=== PATIENT | female | born 1970 | race African-American/Black ===

== ENCOUNTER 2023-07-12 19:32 | Inpatient (IN) | payer BC, OTHER ==
[~2023-07-12] VITALS: Ht 152.4 cm; Wt 58.5 kg
[2023-07-12 19:39] VITALS: BP_SYST 100; PULSE 100; RESP 19; TEMP 97.2; O2SAT 100
[2023-07-12] MEDS ORDERED: ASPIRIN 81 MG TAB.CHEW PO ONE (20:00)
[2023-07-12 20:25] LABS: BASOPHILS # (AUTO) 0.1 K/uL (0.0-0.2); BASOPHILS % (AUTO) 0.5 % (0.0-2.0); EOSINOPHILS # (AUTO) 0.2 K/uL (0.0-0.4); EOSINOPHILS % (AUTO) 0.9 % (0.0-4.0); HEMATOCRIT 25.9 % (36-48); HEMOGLOBIN 8.4 g/dL (12.0-16.0); LYMPHOCYTES # (AUTO) 3.7 K/uL (1.0-5.5); LYMPHOCYTES % (AUTO) 17.4 % (20.5-51.5); MEAN CORPUSCULAR HEMOGLOBIN 25 pg (27-31); MEAN CORPUSCULAR HGB CONC 33 % (32-36); MEAN CORPUSCULAR VOLUME 76 fL (79.0-98.0); MONOCYTES # (AUTO) 2.3 K/uL (0.0-1.0); MONOCYTES % (AUTO) 10.8 % (1.7-9.3); NEUTROPHILS # (AUTO) 14.9 K/uL (1.8-7.7); NEUTROPHILS % (AUTO) 70.4 % (40.0-70.0); PLATELET COUNT (AUTO) 550 K/uL (130-430); RED BLOOD CELL COUNT(AUTO) 3.42 MIL/uL (4.2-6.2); WHITE BLOOD COUNT (AUTO) 21.1 K/uL (4.8-10.8)
[2023-07-12 20:45] LABS: ANION GAP 12 (5-15); CALCIUM 8.6 mg/dL (8.4-11.0); CARBON DIOXIDE 21 mmol/L (23-29); CHLORIDE 99 mmol/L (98-107); CREATININE 1.33 mg/dL (0.55-1.30); GFR AFRICAN AMERICAN 53 mL/min (>90); GLUCOSE 229 mg/dL (74-106); POTASSIUM 3.6 mmol/L (3.5-5.1); SODIUM SERUM 132 mmol/L (136-145); UREA NITROGEN, BLOOD 8 mg/dL (8-21)
[2023-07-12] MEDS ORDERED: PIPERACILLIN/TAZOBACTAM 2.25 GM in NS 50 ML IV ONE (20:45)
[2023-07-12 20:52] LABS: ALANINE AMINOTRANSFERASE 36 U/L (12-78); ALBUMIN 2.5 g/dL (3.4-4.8); ASPARTATE AMINOTRANSFERASE 48 U/L (10-37); BILIRUBIN,DIRECT 0.1 mg/dL (0.0-0.3); TOTAL BILIRUBIN 0.4 mg/dL (0.0-1.0); TOTAL PROTEIN, SERUM 6.4 g/dL (6.4-8.3)
[2023-07-12 20:57] LABS: GFR NON AFRICAN-AMERICAN 44 mL/min (>90)
[2023-07-12] MEDS ORDERED: PIPERACILLIN/TAZOBACTAM 2.25 GM VIAL IV ONE (21:20)
[2023-07-12 21:41] LABS: BILIRUBIN,URINE NEGATIVE (NEGATIVE); BLOOD, URINE NEGATIVE (NEGATIVE); CLARITY/URINE CLEAR (CLEAR); COLOR,URINE YELLOW (YELLOW); GLUCOSE,URINE NEGATIVE (NEGATIVE); KETONES,URINE NEGATIVE (NEGATIVE); LEUKOCYTE ESTERASE ,URINE 1+ (NEGATIVE); NITRITE, URINE NEGATIVE (NEGATIVE); PH,URINE 5.5 (5.0-8.0); PROTEIN URINE TRACE (NEGATIVE); UROBILINOGEN,URINE 0.2 (0.2-1.0)
[2023-07-12] MEDS ORDERED: ACETAMINOPHEN 325 MG TABLET PO PRN (21:45)
[2023-07-12] MEDS ORDERED: DEXTROSE 50% JECT 50 ML DISP.SYRIN IVP PRN (21:45)
[2023-07-12] MEDS ORDERED: NACL 0.9% 1,000 ML IV ONE ×3 (21:45)
[2023-07-12] MEDS ORDERED: HYDROcodone/ACETAMIN 10-325 MG TAB PO PRN (21:45)
[2023-07-12] MEDS ORDERED: GLUCOSE (DEXTROSE) ORAL GEL -Adults PO PRN (21:45)
[2023-07-12] MEDS: NACL 0.9% 1,000 ML IV SCH (22:00)
[2023-07-12 22:44] LABS: BACTERIA,URINE FEW /HPF (None Seen)
[2023-07-12] MEDS ORDERED: ALPR0.5T PO (23:14)
[2023-07-12] MEDS ORDERED: DIPH25CA83 PO (23:14)
[2023-07-12] MEDS ORDERED: BUDE6HFA INH (23:14)
[2023-07-12] MEDS ORDERED: AMLO10TA88 PO (23:14)
[2023-07-12] MEDS ORDERED: ACET325C6 PO (23:14)
[2023-07-12] MEDS ORDERED: DOCU-156 PO (23:14)
[2023-07-12] MEDS ORDERED: BUDE10.7 INH (23:14)
[2023-07-12] MEDS ORDERED: ATOR40TA68 PO (23:14)
[2023-07-12] MEDS ORDERED: METH-634 PO (23:15)
[2023-07-12] MEDS ORDERED: INSU100V11 SQ (23:15)
[2023-07-12] MEDS ORDERED: METO100T14 PO (23:15)
[2023-07-12] MEDS ORDERED: METO-290 PO (23:15)
[2023-07-12] MEDS ORDERED: APIX5TAB PO (23:15)
[2023-07-12] MEDS ORDERED: NEU300 PO (23:15)
[2023-07-12] MEDS ORDERED: FAMO40TA7 PO (23:15)
[2023-07-12] MEDS ORDERED: GLUC1VIA20 (23:15)
[2023-07-13] MEDS ORDERED: PIPERACILLIN/TAZOBACTAM 3.375 GM/VIAL (ZOSYN) IV ONE ×3 (00:32→23:21)
[2023-07-13] MEDS: PIPERACILLIN/TAZO 3.375/DEX-IS 50 ML IV SCH ×5 (00:46→23:41)
[2023-07-13 05:35] LABS: BASOPHILS # (AUTO) 0.1 K/uL (0.0-0.2); BASOPHILS % (AUTO) 0.5 % (0.0-2.0); EOSINOPHILS # (AUTO) 0.3 K/uL (0.0-0.4); EOSINOPHILS % (AUTO) 2.5 % (0.0-4.0); HEMATOCRIT 22.8 % (36-48); HEMOGLOBIN 7.2 g/dL (12.0-16.0); LYMPHOCYTES # (AUTO) 2.7 K/uL (1.0-5.5); LYMPHOCYTES % (AUTO) 21.3 % (20.5-51.5); MEAN CORPUSCULAR HEMOGLOBIN 24 pg (27-31); MEAN CORPUSCULAR HGB CONC 32 % (32-36); MEAN CORPUSCULAR VOLUME 76 fL (79.0-98.0); MONOCYTES # (AUTO) 1.6 K/uL (0.0-1.0); MONOCYTES % (AUTO) 12.5 % (1.7-9.3); NEUTROPHILS % (AUTO) 63.2 % (40.0-70.0); PLATELET COUNT (AUTO) 492 K/uL (130-430); RED BLOOD CELL COUNT(AUTO) 2.98 MIL/uL (4.2-6.2); RED CELL DISTRIBUTION WIDTH 23.2 % (9.0-15.0); WHITE BLOOD COUNT (AUTO) 12.6 K/uL (4.8-10.8)
[2023-07-13 06:01] LABS: ALBUMIN 2.3 g/dL (3.4-4.8); CALCIUM 8.3 mg/dL (8.4-11.0); CREATININE 1.04 mg/dL (0.55-1.30); POTASSIUM 3.5 mmol/L (3.5-5.1); TOTAL BILIRUBIN 0.3 mg/dL (0.0-1.0); TOTAL PROTEIN, SERUM 5.9 g/dL (6.4-8.3)
[2023-07-13] MEDS ORDERED: INSULIN REGULAR, HUMAN 10 UNITS/0.1 ML, 3 ML VIAL ONE ×2 (06:36→12:26)
[2023-07-13] MEDS: INSULIN REGULAR, HUMAN 100 UNITS/ML, 3 ML VIAL (humuLIN R) SUBCUT PRN ×2 (06:39→12:26)
[2023-07-13] MEDS: NACL 0.9% 1,000 ML IV SCH ×2 (07:45→17:22)
[2023-07-13] MEDS: ONDANSETRON HCL 4 MG/2 ML VIAL IVP PRN (09:57)
[2023-07-13] MEDS ORDERED: ATORVASTATIN 20 MG TABLET PO ONE (10:30)
[2023-07-13] MEDS ORDERED: amLODIPine BESYLATE 10 MG TABLET PO ONE (10:30)
[2023-07-13] MEDS ORDERED: GABAPENTIN 300 MG CAPSULE PO ONE (10:30)
[2023-07-13 10:35] LABS: TOTAL IRON BIND. CAPACITY 123 ug/dL (250-450)
[2023-07-13] MEDS: MORPHINE 2 MG/ML INJ. SYRINGE IVP PRN ×2 (11:28→16:50)
[2023-07-13] MEDS ORDERED: HYDROcodone/ACETAMIN 5-325 MG TAB (NORCO/ VICODIN) PO PRN (13:30)
[2023-07-13] MEDS ORDERED: ALBUTEROL SULFATE 0.083% 2.5 MG/3 ML VIAL.NEB INH ONE (14:00)
[2023-07-13 14:04] VITALS: O2SAT 99
[2023-07-13] MEDS: ALBUTEROL SULFATE 0.083% 2.5 MG/3 ML VIAL.NEB INH SCH (14:04)
[2023-07-13 14:09] VITALS: BP_SYST 118; PULSE 112; O2SAT 99
[2023-07-13] MEDS: SOD FERRIC GLUC COMPLEX/SUC 125 MG in NS 100 ML IV SCH (17:57)
[2023-07-13] MEDS: APIXABAN 2.5 MG TABLET PO SCH (21:00)
[2023-07-13 21:07] LABS: HEMATOCRIT 23.6 % (36-48); HEMOGLOBIN 7.4 g/dL (12.0-16.0)
[2023-07-13 21:31] VITALS: BP_SYST 109; PULSE 116; RESP 20; TEMP 99; O2SAT 100
[2023-07-13] MEDS: INSULIN GLARGINE 100 UNITS/ML, 10 ML VIAL SUBCUT SCH (22:08)
[2023-07-14] VITALS (11 sets, daily range): BP systolic 109–135; PULSE 105–116; RESP 16–20; TEMP 97.6–99; O2SAT 97–100
[2023-07-14] MEDS: ALBUTEROL SULFATE 0.083% 2.5 MG/3 ML VIAL.NEB INH SCH ×4 (01:25→20:02)
[2023-07-14] MEDS: PIPERACILLIN/TAZO 3.375/DEX-IS 50 ML IV SCH ×3 (05:16→17:18)
[2023-07-14] MEDS: NACL 0.9% 1,000 ML IV SCH ×2 (05:17→14:00)
[2023-07-14] MEDS: INSULIN REGULAR, HUMAN 100 UNITS/ML, 3 ML VIAL (humuLIN R) SUBCUT PRN (05:32)
[2023-07-14 06:15] LABS: BASOPHILS # (AUTO) 0.1 K/uL (0.0-0.2); BASOPHILS % (AUTO) 0.7 % (0.0-2.0); EOSINOPHILS # (AUTO) 0.3 K/uL (0.0-0.4); EOSINOPHILS % (AUTO) 1.8 % (0.0-4.0); LYMPHOCYTES % (AUTO) 14.1 % (20.5-51.5); MEAN CORPUSCULAR HEMOGLOBIN 25 pg (27-31); MEAN CORPUSCULAR HGB CONC 32 % (32-36); MEAN CORPUSCULAR VOLUME 77 fL (79.0-98.0); MONOCYTES # (AUTO) 1.6 K/uL (0.0-1.0); MONOCYTES % (AUTO) 10.9 % (1.7-9.3); NEUTROPHILS # (AUTO) 10.5 K/uL (1.8-7.7); NEUTROPHILS % (AUTO) 72.5 % (40.0-70.0); PLATELET COUNT (AUTO) 536 K/uL (130-430); RED BLOOD CELL COUNT(AUTO) 2.85 MIL/uL (4.2-6.2); RED CELL DISTRIBUTION WIDTH 23.2 % (9.0-15.0); WHITE BLOOD COUNT (AUTO) 14.5 K/uL (4.8-10.8)
[2023-07-14 06:34] LABS: ALBUMIN 1.9 g/dL (3.4-4.8); CALCIUM 7.7 mg/dL (8.4-11.0); CREATININE 0.78 mg/dL (0.55-1.30); POTASSIUM 3.6 mmol/L (3.5-5.1); TOTAL BILIRUBIN 0.2 mg/dL (0.0-1.0); TOTAL PROTEIN, SERUM 5.3 g/dL (6.4-8.3)
[2023-07-14] MEDS: ONDANSETRON HCL 4 MG/2 ML VIAL IVP PRN ×2 (06:49→14:00)
[2023-07-14] MEDS: BUDESONIDE 0.5 MG/2 ML AMPUL.NEB INH SCH ×2 (07:29→19:00)
[2023-07-14] MEDS: ATORVASTATIN 20 MG TABLET PO SCH (08:58)
[2023-07-14] MEDS: GABAPENTIN 300 MG CAPSULE PO SCH (08:58)
[2023-07-14] MEDS: amLODIPine BESYLATE 10 MG TABLET PO SCH (08:58)
[2023-07-14] MEDS: APIXABAN 2.5 MG TABLET PO SCH ×2 (09:00→20:28)
[2023-07-14] MEDS ORDERED: ESCITALOPRAM OXALATE 10 MG TABLET PO SCH (13:30)
[2023-07-14] MEDS ORDERED: CITALOPRAM HYDROBROMIDE 20 MG TABLET PO ONE (13:30)
[2023-07-14 16:38] LABS: HEMATOCRIT 23.3 % (36-48); HEMOGLOBIN 7.6 g/dL (12.0-16.0)
[2023-07-14 17:24] LABS: INR 1.1 (0.8-1.2); PROTHROMBIN TIME 11.6 SECS (9.5-12.5)
[2023-07-14] MEDS: SOD FERRIC GLUC COMPLEX/SUC 125 MG in NS 100 ML IV SCH (17:52)
[2023-07-14] MEDS: INSULIN GLARGINE 100 UNITS/ML, 10 ML VIAL SUBCUT SCH (20:26)
[2023-07-15] MEDS: PIPERACILLIN/TAZO 3.375/DEX-IS 50 ML IV SCH ×4 (00:14→17:13)
[2023-07-15] MEDS: NACL 0.9% 1,000 ML IV SCH ×3 (00:14→21:03)
[2023-07-15] MEDS: ALBUTEROL SULFATE 0.083% 2.5 MG/3 ML VIAL.NEB INH SCH ×4 (01:00→19:00)
[2023-07-15 01:01] VITALS: BP_SYST 122; PULSE 106; RESP 17; TEMP 98.8; O2SAT 100
[2023-07-15] MEDS: INSULIN REGULAR, HUMAN 100 UNITS/ML, 3 ML VIAL (humuLIN R) SUBCUT PRN (06:38)
[2023-07-15] MEDS: BUDESONIDE 0.5 MG/2 ML AMPUL.NEB INH SCH ×2 (07:00→23:07)
[2023-07-15 08:10] VITALS: BP_SYST 128; PULSE 98; RESP 18; TEMP 97.7; O2SAT 98
[2023-07-15] MEDS: CITALOPRAM HYDROBROMIDE 20 MG TABLET PO SCH (09:19)
[2023-07-15] MEDS: GABAPENTIN 300 MG CAPSULE PO SCH (09:19)
[2023-07-15] MEDS: ONDANSETRON HCL 4 MG/2 ML VIAL IVP PRN ×2 (09:19→15:06)
[2023-07-15] MEDS: amLODIPine BESYLATE 10 MG TABLET PO SCH (09:20)
[2023-07-15] MEDS: ATORVASTATIN 20 MG TABLET PO SCH (09:20)
[2023-07-15 09:24] LABS: BASOPHILS # (AUTO) 0.1 K/uL (0.0-0.2); BASOPHILS % (AUTO) 0.5 % (0.0-2.0); EOSINOPHILS # (AUTO) 0.5 K/uL (0.0-0.4); EOSINOPHILS % (AUTO) 3.4 % (0.0-4.0); HEMATOCRIT 23.3 % (36-48); HEMOGLOBIN 7.6 g/dL (12.0-16.0); LYMPHOCYTES # (AUTO) 1.8 K/uL (1.0-5.5); LYMPHOCYTES % (AUTO) 12.7 % (20.5-51.5); MEAN CORPUSCULAR HEMOGLOBIN 25 pg (27-31); MEAN CORPUSCULAR HGB CONC 33 % (32-36); MEAN CORPUSCULAR VOLUME 76 fL (79.0-98.0); MONOCYTES % (AUTO) 7.5 % (1.7-9.3); NEUTROPHILS # (AUTO) 10.6 K/uL (1.8-7.7); NEUTROPHILS % (AUTO) 75.9 % (40.0-70.0); PLATELET COUNT (AUTO) 603 K/uL (130-430); RED BLOOD CELL COUNT(AUTO) 3.06 MIL/uL (4.2-6.2); RED CELL DISTRIBUTION WIDTH 22.6 % (9.0-15.0); WHITE BLOOD COUNT (AUTO) 13.9 K/uL (4.8-10.8)
[2023-07-15] MEDS: APIXABAN 2.5 MG TABLET PO SCH ×2 (09:25→21:09)
[2023-07-15 09:49] LABS: ALBUMIN 2.1 g/dL (3.4-4.8); CALCIUM 7.7 mg/dL (8.4-11.0); CREATININE 0.65 mg/dL (0.55-1.30); POTASSIUM 3.4 mmol/L (3.5-5.1); TOTAL BILIRUBIN 0.3 mg/dL (0.0-1.0); TOTAL PROTEIN, SERUM 5.8 g/dL (6.4-8.3)
[2023-07-15 09:55] VITALS: O2SAT 98
[2023-07-15 12:00] VITALS: BP_SYST 129; PULSE 115; RESP 18; TEMP 98.1; O2SAT 99
[2023-07-15 16:00] VITALS: BP_SYST 125; PULSE 115; RESP 18; TEMP 98.1; O2SAT 99
[2023-07-15] MEDS: HYDROcodone/ACETAMIN 5-325 MG TAB (NORCO/ VICODIN) PO PRN (17:18)
[2023-07-15] MEDS: SOD FERRIC GLUC COMPLEX/SUC 125 MG in NS 100 ML IV SCH (18:16)
[2023-07-15 20:00] VITALS: BP_SYST 125; PULSE 105; RESP 18; TEMP 97.1; O2SAT 100
[2023-07-15] MEDS: INSULIN GLARGINE 100 UNITS/ML, 10 ML VIAL SUBCUT SCH (21:00)
[2023-07-15] MEDS: MEROPENEM 1 GM in NS 100 ML IV SCH (23:02)
[2023-07-16] VITALS (9 sets, daily range): BP systolic 113–140; PULSE 106–117; RESP 18; TEMP 97.6–98.7; O2SAT 99–100
[2023-07-16] MEDS: ALBUTEROL SULFATE 0.083% 2.5 MG/3 ML VIAL.NEB INH SCH ×4 (01:00→19:00)
[2023-07-16] MEDS: NACL 0.9% 1,000 ML IV SCH ×2 (05:45→15:45)
[2023-07-16 06:04] LABS: BASOPHILS # (AUTO) 0.1 K/uL (0.0-0.2); BASOPHILS % (AUTO) 0.6 % (0.0-2.0); EOSINOPHILS # (AUTO) 0.4 K/uL (0.0-0.4); EOSINOPHILS % (AUTO) 3.1 % (0.0-4.0); HEMATOCRIT 24.8 % (36-48); LYMPHOCYTES # (AUTO) 2.7 K/uL (1.0-5.5); LYMPHOCYTES % (AUTO) 18.6 % (20.5-51.5); MEAN CORPUSCULAR HEMOGLOBIN 25 pg (27-31); MEAN CORPUSCULAR HGB CONC 32 % (32-36); MEAN CORPUSCULAR VOLUME 76 fL (79.0-98.0); MONOCYTES # (AUTO) 0.9 K/uL (0.0-1.0); MONOCYTES % (AUTO) 6.3 % (1.7-9.3); NEUTROPHILS # (AUTO) 10.3 K/uL (1.8-7.7); NEUTROPHILS % (AUTO) 71.4 % (40.0-70.0); PLATELET COUNT (AUTO) 657 K/uL (130-430); RED BLOOD CELL COUNT(AUTO) 3.25 MIL/uL (4.2-6.2); RED CELL DISTRIBUTION WIDTH 22.9 % (9.0-15.0); WHITE BLOOD COUNT (AUTO) 14.4 K/uL (4.8-10.8)
[2023-07-16] MEDS: MEROPENEM 1 GM in NS 100 ML IV SCH ×3 (06:07→21:53)
[2023-07-16 06:33] LABS: ALBUMIN 2.2 g/dL (3.4-4.8); CALCIUM 7.9 mg/dL (8.4-11.0); CREATININE 0.71 mg/dL (0.55-1.30); POTASSIUM 3.4 mmol/L (3.5-5.1); TOTAL BILIRUBIN 0.4 mg/dL (0.0-1.0)
[2023-07-16] MEDS: BUDESONIDE 0.5 MG/2 ML AMPUL.NEB INH SCH ×2 (07:50→19:00)
[2023-07-16 07:51] LABS: TOTAL PROTEIN, SERUM 6.1 g/dL (6.4-8.3)
[2023-07-16] MEDS: CITALOPRAM HYDROBROMIDE 20 MG TABLET PO SCH (08:38)
[2023-07-16] MEDS: ATORVASTATIN 20 MG TABLET PO SCH (08:38)
[2023-07-16] MEDS: GABAPENTIN 300 MG CAPSULE PO SCH (08:38)
[2023-07-16] MEDS: amLODIPine BESYLATE 10 MG TABLET PO SCH (08:39)
[2023-07-16] MEDS: APIXABAN 2.5 MG TABLET PO SCH ×2 (08:42→21:54)
[2023-07-16] MEDS: SCOPOLAMINE HYDROBROMIDE 1 MG PATCH .72 H (TRANSDERM-SCOP) TD SCH (13:31)
[2023-07-16] MEDS: SOD FERRIC GLUC COMPLEX/SUC 125 MG in NS 100 ML IV SCH (17:29)
[2023-07-16] MEDS: INSULIN GLARGINE 100 UNITS/ML, 10 ML VIAL SUBCUT SCH (21:00)
[2023-07-16] MEDS: ONDANSETRON HCL 4 MG/2 ML VIAL IVP PRN (22:35)
[2023-07-17] VITALS (8 sets, daily range): BP systolic 110–135; PULSE 83–109; RESP 15–18; TEMP 97.6–99; O2SAT 96–100
[2023-07-17] MEDS: NACL 0.9% 1,000 ML IV SCH ×3 (01:45→21:45)
[2023-07-17] MEDS: MEROPENEM 1 GM in NS 100 ML IV SCH ×3 (06:45→22:59)
[2023-07-17] MEDS: ALBUTEROL SULFATE 0.083% 2.5 MG/3 ML VIAL.NEB INH SCH (07:00)
[2023-07-17] MEDS: BUDESONIDE 0.5 MG/2 ML AMPUL.NEB INH SCH ×2 (08:54→19:25)
[2023-07-17 09:04] LABS: BASOPHILS # (AUTO) 0.1 K/uL (0.0-0.2); BASOPHILS % (AUTO) 0.5 % (0.0-2.0); EOSINOPHILS # (AUTO) 0.2 K/uL (0.0-0.4); EOSINOPHILS % (AUTO) 1.4 % (0.0-4.0); HEMOGLOBIN 8.6 g/dL (12.0-16.0); LYMPHOCYTES % (AUTO) 13.8 % (20.5-51.5); MEAN CORPUSCULAR HEMOGLOBIN 24 pg (27-31); MEAN CORPUSCULAR HGB CONC 32 % (32-36); MEAN CORPUSCULAR VOLUME 76 fL (79.0-98.0); MONOCYTES # (AUTO) 0.9 K/uL (0.0-1.0); MONOCYTES % (AUTO) 6.1 % (1.7-9.3); NEUTROPHILS # (AUTO) 11.6 K/uL (1.8-7.7); NEUTROPHILS % (AUTO) 78.2 % (40.0-70.0); PLATELET COUNT (AUTO) 692 K/uL (130-430); RED BLOOD CELL COUNT(AUTO) 3.53 MIL/uL (4.2-6.2); RED CELL DISTRIBUTION WIDTH 22.2 % (9.0-15.0); WHITE BLOOD COUNT (AUTO) 14.8 K/uL (4.8-10.8)
[2023-07-17 09:24] LABS: ALBUMIN 2.2 g/dL (3.4-4.8); CALCIUM 7.5 mg/dL (8.4-11.0); CREATININE 0.66 mg/dL (0.55-1.30); POTASSIUM 3.2 mmol/L (3.5-5.1); TOTAL BILIRUBIN 0.3 mg/dL (0.0-1.0); TOTAL PROTEIN, SERUM 6.2 g/dL (6.4-8.3)
[2023-07-17] MEDS: ATORVASTATIN 20 MG TABLET PO SCH (10:30)
[2023-07-17] MEDS: GABAPENTIN 300 MG CAPSULE PO SCH (10:31)
[2023-07-17] MEDS: CITALOPRAM HYDROBROMIDE 20 MG TABLET PO SCH (10:31)
[2023-07-17] MEDS: amLODIPine BESYLATE 10 MG TABLET PO SCH (10:31)
[2023-07-17] MEDS: APIXABAN 2.5 MG TABLET PO SCH ×2 (10:34→22:49)
[2023-07-17] MEDS: ONDANSETRON HCL 4 MG/2 ML VIAL IVP PRN ×2 (10:45→15:10)
[2023-07-17] MEDS ORDERED: ALBUTEROL SULFATE 0.083% 2.5 MG/3 ML VIAL.NEB INH PRN (12:15)
[2023-07-17] MEDS ORDERED: POTASSIUM CHLORIDE 20 MEQ/PKT PACKET PO ONE (15:45)
[2023-07-17] MEDS: SOD FERRIC GLUC COMPLEX/SUC 125 MG in NS 100 ML IV SCH (17:17)
[2023-07-17] MEDS: INSULIN GLARGINE 100 UNITS/ML, 10 ML VIAL SUBCUT SCH (21:00)
[2023-07-17] MEDS: LEVOFLOXACIN 250 MG/D5W 50 ML IV SCH (22:47)
[2023-07-18] VITALS (7 sets, daily range): BP systolic 116–133; PULSE 93–109; RESP 16–18; TEMP 97.6–99; O2SAT 99–100
[2023-07-18] MEDS: MEROPENEM 1 GM in NS 100 ML IV SCH ×3 (05:52→21:37)
[2023-07-18] MEDS: BUDESONIDE 0.5 MG/2 ML AMPUL.NEB INH SCH ×2 (07:00→20:12)
[2023-07-18] MEDS: NACL 0.9% 1,000 ML IV SCH ×2 (07:45→19:23)
[2023-07-18] MEDS: APIXABAN 2.5 MG TABLET PO SCH ×2 (08:40→21:41)
[2023-07-18] MEDS: ONDANSETRON HCL 4 MG/2 ML VIAL IVP PRN ×2 (08:41→23:57)
[2023-07-18] MEDS: CITALOPRAM HYDROBROMIDE 20 MG TABLET PO SCH (08:42)
[2023-07-18] MEDS: GABAPENTIN 300 MG CAPSULE PO SCH (08:42)
[2023-07-18] MEDS: amLODIPine BESYLATE 10 MG TABLET PO SCH (08:43)
[2023-07-18 09:32] LABS: BASOPHILS # (AUTO) 0.1 K/uL (0.0-0.2); BASOPHILS % (AUTO) 0.7 % (0.0-2.0); EOSINOPHILS # (AUTO) 0.3 K/uL (0.0-0.4); EOSINOPHILS % (AUTO) 2.1 % (0.0-4.0); HEMATOCRIT 27.9 % (36-48); HEMOGLOBIN 8.7 g/dL (12.0-16.0); LYMPHOCYTES # (AUTO) 2.4 K/uL (1.0-5.5); LYMPHOCYTES % (AUTO) 18.2 % (20.5-51.5); MEAN CORPUSCULAR HEMOGLOBIN 24 pg (27-31); MEAN CORPUSCULAR HGB CONC 31 % (32-36); MEAN CORPUSCULAR VOLUME 78 fL (79.0-98.0); MONOCYTES # (AUTO) 0.8 K/uL (0.0-1.0); MONOCYTES % (AUTO) 5.9 % (1.7-9.3); NEUTROPHILS # (AUTO) 9.5 K/uL (1.8-7.7); NEUTROPHILS % (AUTO) 73.1 % (40.0-70.0); PLATELET COUNT (AUTO) 697 K/uL (130-430); RED CELL DISTRIBUTION WIDTH 21.8 % (9.0-15.0)
[2023-07-18 09:55] LABS: ALBUMIN 2.3 g/dL (3.4-4.8); CALCIUM 7.2 mg/dL (8.4-11.0); CREATININE 0.68 mg/dL (0.55-1.30); POTASSIUM 3.1 mmol/L (3.5-5.1); TOTAL BILIRUBIN 0.3 mg/dL (0.0-1.0)
[2023-07-18] MEDS: ATORVASTATIN 20 MG TABLET PO SCH (10:03)
[2023-07-18] MEDS: SOD FERRIC GLUC COMPLEX/SUC 125 MG in NS 100 ML IV SCH (18:00)
[2023-07-18] MEDS: LEVOFLOXACIN 250 MG/D5W 50 ML IV SCH (19:24)
[2023-07-18] MEDS: INSULIN GLARGINE 100 UNITS/ML, 10 ML VIAL SUBCUT SCH (21:00)
[2023-07-19] VITALS (8 sets, daily range): BP systolic 113–129; PULSE 94–104; RESP 16–20; TEMP 86.5–99.2; O2SAT 99–100
[2023-07-19] MEDS: NACL 0.9% 1,000 ML IV SCH (03:45)
[2023-07-19 05:43] LABS: BASOPHILS # (AUTO) 0.1 K/uL (0.0-0.2); BASOPHILS % (AUTO) 0.9 % (0.0-2.0); EOSINOPHILS # (AUTO) 0.4 K/uL (0.0-0.4); HEMATOCRIT 26.3 % (36-48); HEMOGLOBIN 8.2 g/dL (12.0-16.0); LYMPHOCYTES # (AUTO) 2.8 K/uL (1.0-5.5); LYMPHOCYTES % (AUTO) 22.1 % (20.5-51.5); MEAN CORPUSCULAR HEMOGLOBIN 24 pg (27-31); MEAN CORPUSCULAR HGB CONC 31 % (32-36); MEAN CORPUSCULAR VOLUME 77 fL (79.0-98.0); MONOCYTES # (AUTO) 1.1 K/uL (0.0-1.0); MONOCYTES % (AUTO) 8.2 % (1.7-9.3); NEUTROPHILS # (AUTO) 8.4 K/uL (1.8-7.7); NEUTROPHILS % (AUTO) 65.8 % (40.0-70.0); RED BLOOD CELL COUNT(AUTO) 3.42 MIL/uL (4.2-6.2); RED CELL DISTRIBUTION WIDTH 22.1 % (9.0-15.0); WHITE BLOOD COUNT (AUTO) 12.8 K/uL (4.8-10.8)
[2023-07-19] MEDS: ONDANSETRON HCL 4 MG/2 ML VIAL IVP PRN (05:46)
[2023-07-19 06:06] LABS: ALBUMIN 2.1 g/dL (3.4-4.8); CALCIUM 7.6 mg/dL (8.4-11.0); CREATININE 0.52 mg/dL (0.55-1.30); TOTAL BILIRUBIN 0.3 mg/dL (0.0-1.0); TOTAL PROTEIN, SERUM 5.6 g/dL (6.4-8.3)
[2023-07-19] MEDS: MEROPENEM 1 GM in NS 100 ML IV SCH ×3 (06:14→21:39)
[2023-07-19 06:20] LABS: POTASSIUM 2.9 mmol/L (3.5-5.1)
[2023-07-19] MEDS ORDERED: POTASSIUM CHLORIDE 20 MEQ TABLET.ER PO ONE (07:00)
[2023-07-19] MEDS: BUDESONIDE 0.5 MG/2 ML AMPUL.NEB INH SCH ×2 (07:32→20:09)
[2023-07-19 07:44] LABS: ANISOCYTOSIS 2+; HYPOCHROMASIA 1+; OVALOCYTES FEW; PLATELET COUNT (AUTO) 659 K/uL (130-430)
[2023-07-19] MEDS ORDERED: METR-154 PO (09:58)
[2023-07-19] MEDS ORDERED: LEVO-62 PO (09:58)
[2023-07-19] MEDS: amLODIPine BESYLATE 10 MG TABLET PO SCH (10:01)
[2023-07-19] MEDS: APIXABAN 2.5 MG TABLET PO SCH ×2 (10:03→20:50)
[2023-07-19] MEDS: CITALOPRAM HYDROBROMIDE 20 MG TABLET PO SCH (10:03)
[2023-07-19] MEDS: ATORVASTATIN 20 MG TABLET PO SCH (10:03)
[2023-07-19] MEDS: GABAPENTIN 300 MG CAPSULE PO SCH (10:04)
[2023-07-19] MEDS: SCOPOLAMINE HYDROBROMIDE 1 MG PATCH .72 H (TRANSDERM-SCOP) TD SCH (14:38)
[2023-07-19] MEDS: LEVOFLOXACIN 250 MG/D5W 50 ML IV SCH (17:57)
[2023-07-19] MEDS: INSULIN GLARGINE 100 UNITS/ML, 10 ML VIAL SUBCUT SCH (20:51)
[2023-07-19] MEDS: HYDROcodone/ACETAMIN 5-325 MG TAB (NORCO/ VICODIN) PO PRN (21:36)
== END 2023-07-19 23:20 | DRG 871 ==
LOC: SED 19:32 → STU 21:31 → SMU 07-19 03:53
PROVIDERS: ADMIT Family Medicine; ATTEND Family Medicine
DX: A41.9 Sepsis, unspecified organism (principal); E43 Unspecified severe protein-calorie malnutrition; N39.0 Urinary tract infection, site not specified; E87.1 Hypo-osmolality and hyponatremia; N17.9 Acute kidney failure, unspecified; R65.20 Severe sepsis without septic shock; B96.1 Klebsiella pneumoniae [K. pneumoniae] as the cause of diseases classified elsewhere; D64.9 Anemia, unspecified; D75.839 Thrombocytosis, unspecified; E11.65 Type 2 diabetes mellitus with hyperglycemia; E78.5 Hyperlipidemia, unspecified; E83.51 Hypocalcemia; D50.9 Iron deficiency anemia, unspecified; E86.0 Dehydration; F32.A Depression, unspecified; Z68.25 Body mass index [BMI] 25.0-25.9, adult; E87.6 Hypokalemia; E86.9 Volume depletion, unspecified; I10 Essential (primary) hypertension; J44.9 Chronic obstructive pulmonary disease, unspecified; Z43.3 Encounter for attention to colostomy; Z79.01 Long term (current) use of anticoagulants; Z86.711 Personal history of pulmonary embolism; Z90.49 Acquired absence of other specified parts of digestive tract; Z88.2 Allergy status to sulfonamides; Z88.8 Allergy status to other drugs, medicaments and biological substances; Z88.0 Allergy status to penicillin; Z88.6 Allergy status to analgesic agent
CPT/HCPCS: 36415; 71045; 76376; 80048; 80053; 80076; 81000; 81001; 81015; 82272; 82962; 83037; 83540; 83550; 83605; 83880; 84484; 85018; 85025; 85610-TC; 85730-TC; 87040; 87081; 87086; 87101; 93005; 93970; 94640; 94664; 94760; 97110-GP; 97112-GP; 97116-GP; 97530-GP; 99291; G0378; J1815; J1956; J2185; J2270; J2405; J2543; J2916; J7626